=== PATIENT | female | born 1930 | race Asian ===

== ENCOUNTER 2017-02-20 12:42 | Inpatient (IN) | payer MEDICARE, OTHER ==
[2017-02-20] MEDS: SOD CHLORIDE 0.9% 1,000 ML IV (15:36)
[2017-02-20] MEDS: METHYLPREDNISOLONE 125 MG INJ IV ×2 (15:36→18:21)
[2017-02-20 16:00] LABS: ADD MAN DIFF? NO
[2017-02-20 16:01] LABS: BASOPHIL # 0.1 10^3/ul (0.0-0.1); BASOPHILS % 0.6 % (0.0-2.0); EOSINOPHILS # 0.3 10^3/ul (0.0-0.5); EOSINOPHILS % 3.6 % (0.0-7.0); HEMOGLOBIN 14.2 g/dl (12.0-16.0); LYMPHOCYTES # 1.4 10^3/ul (0.8-2.9); LYMPHOCYTES % 17.2 % (15.0-51.0); MEAN CORPUSCULAR HEMOGLOBIN 29.2 pg (29.0-33.0); MEAN CORPUSCULAR VOLUME 88.5 fl (82.0-101.0); MEAN PLATELET VOLUME 9.3 fl (7.4-10.4); MONOCYTE # 0.6 10^3/ul (0.3-0.9); MONOCYTES % 7.5 % (0.0-11.0); NEUTROPHIL # 5.5 10^3/ul (1.6-7.5); NEUTROPHILS % 70.8 % (39.0-77.0); PLATELET COUNT 381 10^3/UL (140-415); RED BLOOD COUNT 4.86 10^6/ul (4.20-5.40); RED CELL DISTRIBUTION WIDTH 12.6 % (11.5-14.5)
[2017-02-20 16:01] LABS: WHITE BLOOD COUNT 7.8 10^3/ul (4.8-10.8)
[2017-02-20] MEDS: IPRATROPIUM (NEB) 0.5 MG/2.5 ML AMP NEB (16:01)
[2017-02-20] MEDS: ALBUTEROL 0.5% (NEB) 2.5 MG/0.5 ML AMP NEB (16:01)
[2017-02-20 16:06] LABS: Allen Test ACCEPTAB; Arterial Base Excess -5.3 mmol/L (-3.0-3); Arterial Blood Gas Oxygen Sat 97.5 mmHG (95.0-100.0); Arterial Fraction of Oxyhgb 96.3 % (93.0-99.0); Arterial MetHb 0.2 % (0.0-1.5); Arterial Total Hemglobin 13.8 g/dl (12.0-18.0); Arterial pCO2 33.5 mmhg (35-45); MODE NASAL CANNULA; Site Right Radial
[2017-02-20 16:21] LABS: ALANINE AMINOTRANSFERASE 32 IU/L (13-69); ALBUMIN 4.7 g/dl (3.3-4.9); ALBUMIN/GLOBULIN RATIO 1.51; ALKALINE PHOSPHATASE 79 IU/L (42-121); ANION GAP 18 (8-16); ASPARTATE AMINO TRANSFERASE 37 IU/L (15-46); BILIRUBIN,INDIRECT 1.1 mg/dl (0-1.1); BILIRUBIN,TOTAL 1.1 mg/dl (0.2-1.3); BLOOD UREA NITROGEN 14 mg/dl (7-20); CALCIUM 9.4 mg/dl (8.4-10.2); CARBON DIOXIDE 22 mmol/L (21-31); CHLORIDE 107 mmol/L (97-110); CREATININE 0.93 mg/dl (0.44-1.00); GLUCOSE 94 mg/dl (70-220); POTASSIUM 3.8 mmol/L (3.5-5.1); SODIUM 143 mmol/L (135-144); TOTAL PROTEIN 7.8 g/dl (6.1-8.1)
[2017-02-20 16:32] LABS: B-TYPE NATRIURETIC PEPTIDE 233 PG/ML (0-450)
[2017-02-20 16:41] LABS: TROPONIN-I < 0.012 ng/ml (0.00-0.12)
[2017-02-20] MEDS ORDERED: ACETAMINOPHEN 325 MG TAB PO ×2 (17:00→18:00)
[2017-02-20] MEDS ORDERED: ONDANSETRON 4 MG INJ IV ×2 (17:00→18:00)
[2017-02-20] MEDS ORDERED: NACL 0.9% 3 ML SYG IV (18:00)
[2017-02-20] MEDS ORDERED: MAGNESIUM HYDROXIDE 30ML CUP PO (18:00)
[2017-02-20] MEDS ORDERED: DOCUSATE SODIUM 100 MG CAP PO (18:00)
[2017-02-20] MEDS: GUAIFENESIN/DM 5ML CUP PO (18:20)
[2017-02-20] MEDS: IOHEXOL 300MG/ML 150 ML BTL (18:49)
[2017-02-20] MEDS: SOD CHLORIDE 0.9% 100 ML (18:49)
[2017-02-20] MEDS: FAMOTIDINE 20 MG TAB PO (23:14)
[2017-02-20] MEDS: ALBUTEROL 0.083% (NEB) 2.5 MG/3 ML AMP HHN (23:17)
[2017-02-21] MEDS: GUAIFENESIN/DM 5ML CUP PO (01:35)
[2017-02-21] MEDS: SALMETEROL/FLUTICASONE 250/50 INHA INH ×3 (01:35→20:54)
[2017-02-21] MEDS: METHYLPREDNISOLONE 125 MG INJ IV ×2 (01:36→05:27)
[2017-02-21] MEDS: LORATADINE 10 MG TAB PO (08:15)
[2017-02-21] MEDS: ASPIRIN 81 MG TAB PO (08:15)
[2017-02-21] MEDS: ENOXAPARIN 30 MG/0.3 ML SYG SC (08:16)
[2017-02-21 08:57] LABS: ADD MAN DIFF? NO
[2017-02-21 09:15] LABS: WHITE BLOOD COUNT 4.6 10^3/ul (4.8-10.8)
[2017-02-21 09:15] LABS: ABNORMAL IP MESSAGE 1; HEMATOCRIT 40.1 % (37.0-47.0); HEMOGLOBIN 13.4 g/dl (12.0-16.0); LYMPHOCYTES # 0.6 10^3/ul (0.8-2.9); LYMPHOCYTES % 12.8 % (15.0-51.0); MEAN CORPUSCULAR HEMOGLOBIN 29.3 pg (29.0-33.0); MEAN CORPUSCULAR HGB CONC 33.4 g/dl (32.0-37.0); MEAN CORPUSCULAR VOLUME 87.6 fl (82.0-101.0); MEAN PLATELET VOLUME 9.3 fl (7.4-10.4); MONOCYTES % 0.7 % (0.0-11.0); NEUTROPHILS % 86.1 % (39.0-77.0); PLATELET COUNT 319 10^3/UL (140-415); RED BLOOD COUNT 4.58 10^6/ul (4.20-5.40); RED CELL DISTRIBUTION WIDTH 12.8 % (11.5-14.5)
[2017-02-21 09:24] LABS: ALBUMIN 4.2 g/dl (3.3-4.9); ANION GAP 16 (8-16); BLOOD UREA NITROGEN 17 mg/dl (7-20); CALCIUM 8.8 mg/dl (8.4-10.2); CARBON DIOXIDE 22 mmol/L (21-31); CHLORIDE 109 mmol/L (97-110); CREATININE 0.78 mg/dl (0.44-1.00); GLUCOSE 169 mg/dl (70-220); MAGNESIUM 2.2 mg/dl (1.7-2.5); PHOSPHORUS 3.2 mg/dl (2.5-4.9); POTASSIUM 3.9 mmol/L (3.5-5.1); SODIUM 143 mmol/L (135-144)
[2017-02-21 09:25] LABS: POSITIVE DIFF @See below
[2017-02-21] MEDS: ALBUTEROL 0.083% (NEB) 2.5 MG/3 ML AMP HHN ×4 (10:12→20:47)
[2017-02-21] MEDS: METHYLPREDNISOLONE 40 MG INJ IV ×2 (13:15→21:28)
[2017-02-21] MEDS: FAMOTIDINE 20 MG TAB PO (20:54)
[2017-02-21] MEDS: GUAIFENESIN/CODEINE 5ML CUP PO (21:28)
[2017-02-22] MEDS: GUAIFENESIN/CODEINE 5ML CUP PO ×3 (04:39→21:03)
[2017-02-22] MEDS: METHYLPREDNISOLONE 40 MG INJ IV ×2 (05:19→13:46)
[2017-02-22 08:12] LABS: ADD MAN DIFF? NO
[2017-02-22 08:18] LABS: BASOPHILS % 0.1 % (0.0-2.0); HEMATOCRIT 42.3 % (37.0-47.0); HEMOGLOBIN 13.5 g/dl (12.0-16.0); LYMPHOCYTES # 0.7 10^3/ul (0.8-2.9); LYMPHOCYTES % 5.5 % (15.0-51.0); MEAN CORPUSCULAR HEMOGLOBIN 28.9 pg (29.0-33.0); MEAN CORPUSCULAR HGB CONC 31.9 g/dl (32.0-37.0); MEAN CORPUSCULAR VOLUME 90.6 fl (82.0-101.0); MEAN PLATELET VOLUME 9.4 fl (7.4-10.4); MONOCYTE # 0.3 10^3/ul (0.3-0.9); MONOCYTES % 2.3 % (0.0-11.0); NEUTROPHIL # 11.8 10^3/ul (1.6-7.5); NEUTROPHILS % 91.6 % (39.0-77.0); PLATELET COUNT 372 10^3/UL (140-415); RED BLOOD COUNT 4.67 10^6/ul (4.20-5.40); RED CELL DISTRIBUTION WIDTH 13.2 % (11.5-14.5)
[2017-02-22 08:18] LABS: WHITE BLOOD COUNT 12.9 10^3/ul (4.8-10.8)
[2017-02-22] MEDS: ALBUTEROL 0.083% (NEB) 2.5 MG/3 ML AMP HHN ×4 (08:27→20:20)
[2017-02-22 08:41] LABS: ALBUMIN 4.2 g/dl (3.3-4.9); ANION GAP 20 (8-16); BLOOD UREA NITROGEN 25 mg/dl (7-20); CALCIUM 9.2 mg/dl (8.4-10.2); CARBON DIOXIDE 24 mmol/L (21-31); CHLORIDE 109 mmol/L (97-110); CREATININE 0.85 mg/dl (0.44-1.00); GLUCOSE 137 mg/dl (70-220); MAGNESIUM 2.4 mg/dl (1.7-2.5); PHOSPHORUS 3.3 mg/dl (2.5-4.9); POTASSIUM 4.7 mmol/L (3.5-5.1); SODIUM 148 mmol/L (135-144)
[2017-02-22] MEDS: ASPIRIN 81 MG TAB PO (09:07)
[2017-02-22] MEDS: SALMETEROL/FLUTICASONE 250/50 INHA INH ×2 (09:07→21:03)
[2017-02-22] MEDS: LORATADINE 10 MG TAB PO (09:07)
[2017-02-22] MEDS: ENOXAPARIN 30 MG/0.3 ML SYG SC (09:08)
[2017-02-22] MEDS: FAMOTIDINE 20 MG TAB PO (21:03)
[2017-02-23] MEDS: GUAIFENESIN/CODEINE 5ML CUP PO (05:25)
[2017-02-23] MEDS: ALBUTEROL 0.083% (NEB) 2.5 MG/3 ML AMP HHN ×4 (08:10→21:39)
[2017-02-23 08:38] LABS: ADD MAN DIFF? NO
[2017-02-23 08:41] LABS: WHITE BLOOD COUNT 10.9 10^3/ul (4.8-10.8)
[2017-02-23 08:41] LABS: BASOPHILS % 0.1 % (0.0-2.0); HEMATOCRIT 37.6 % (37.0-47.0); HEMOGLOBIN 12.6 g/dl (12.0-16.0); LYMPHOCYTES # 1.2 10^3/ul (0.8-2.9); LYMPHOCYTES % 10.7 % (15.0-51.0); MEAN CORPUSCULAR HEMOGLOBIN 29.8 pg (29.0-33.0); MEAN CORPUSCULAR HGB CONC 33.5 g/dl (32.0-37.0); MEAN CORPUSCULAR VOLUME 88.9 fl (82.0-101.0); MEAN PLATELET VOLUME 9.5 fl (7.4-10.4); MONOCYTE # 0.6 10^3/ul (0.3-0.9); MONOCYTES % 5.8 % (0.0-11.0); NEUTROPHILS % 82.8 % (39.0-77.0); PLATELET COUNT 329 10^3/UL (140-415); RED BLOOD COUNT 4.23 10^6/ul (4.20-5.40); RED CELL DISTRIBUTION WIDTH 13.2 % (11.5-14.5)
[2017-02-23 09:06] LABS: ALBUMIN 3.7 g/dl (3.3-4.9); ANION GAP 14 (8-16); BLOOD UREA NITROGEN 25 mg/dl (7-20); CALCIUM 8.1 mg/dl (8.4-10.2); CARBON DIOXIDE 26 mmol/L (21-31); CHLORIDE 109 mmol/L (97-110); CREATININE 0.82 mg/dl (0.44-1.00); GLUCOSE 89 mg/dl (70-220); MAGNESIUM 2.4 mg/dl (1.7-2.5); PHOSPHORUS 2.7 mg/dl (2.5-4.9); POTASSIUM 3.8 mmol/L (3.5-5.1); SODIUM 145 mmol/L (135-144)
[2017-02-23] MEDS: predniSONE 20 MG TAB PO (09:27)
[2017-02-23] MEDS: ASPIRIN 81 MG TAB PO (09:27)
[2017-02-23] MEDS: SALMETEROL/FLUTICASONE 250/50 INHA INH (09:27)
[2017-02-23] MEDS: LORATADINE 10 MG TAB PO (09:27)
[2017-02-23] MEDS: ENOXAPARIN 30 MG/0.3 ML SYG SC (09:29)
[2017-02-23] MEDS: FAMOTIDINE 20 MG TAB PO (21:31)
[2017-02-24] MEDS: SALMETEROL/FLUTICASONE 250/50 INHA INH ×2 (00:20→09:15)
[2017-02-24] MEDS: LORATADINE 10 MG TAB PO (09:16)
[2017-02-24] MEDS: predniSONE 20 MG TAB PO (09:16)
[2017-02-24] MEDS: ASPIRIN 81 MG TAB PO (09:16)
[2017-02-24] MEDS: ENOXAPARIN 30 MG/0.3 ML SYG SC (09:17)
[2017-02-24] MEDS: ALBUTEROL 0.083% (NEB) 2.5 MG/3 ML AMP HHN ×2 (09:55→13:42)
[2017-02-24 10:07] LABS: ADD MAN DIFF? NO
[2017-02-24 10:13] LABS: BASOPHILS % 0.1 % (0.0-2.0); EOSINOPHILS % 0.3 % (0.0-7.0); HEMOGLOBIN 13.6 g/dl (12.0-16.0); LYMPHOCYTES # 1.9 10^3/ul (0.8-2.9); MEAN CORPUSCULAR HEMOGLOBIN 29.2 pg (29.0-33.0); MEAN CORPUSCULAR HGB CONC 32.4 g/dl (32.0-37.0); MEAN CORPUSCULAR VOLUME 90.3 fl (82.0-101.0); MEAN PLATELET VOLUME 9.6 fl (7.4-10.4); MONOCYTE # 0.7 10^3/ul (0.3-0.9); MONOCYTES % 7.7 % (0.0-11.0); NEUTROPHIL # 6.4 10^3/ul (1.6-7.5); PLATELET COUNT 385 10^3/UL (140-415); RED BLOOD COUNT 4.65 10^6/ul (4.20-5.40); RED CELL DISTRIBUTION WIDTH 13.2 % (11.5-14.5)
[2017-02-24 10:13] LABS: WHITE BLOOD COUNT 9.1 10^3/ul (4.8-10.8)
[2017-02-24 10:38] LABS: ANION GAP 16 (8-16); BLOOD UREA NITROGEN 21 mg/dl (7-20); CALCIUM 8.5 mg/dl (8.4-10.2); CARBON DIOXIDE 29 mmol/L (21-31); CHLORIDE 106 mmol/L (97-110); CREATININE 0.77 mg/dl (0.44-1.00); GLUCOSE 72 mg/dl (70-220); MAGNESIUM 2.3 mg/dl (1.7-2.5); PHOSPHORUS 2.9 mg/dl (2.5-4.9); SODIUM 147 mmol/L (135-144)
== END 2017-02-24 16:30 | disposition home or self-care (01) | DRG 203 ==
LOC: MS4 20:35 → E/R 12:42 → MS4 16:53
DX: J45.51 Severe persistent asthma with (acute) exacerbation (principal); R91.1 Solitary pulmonary nodule; Z66 Do not resuscitate; R91.8 Other nonspecific abnormal finding of lung field
CPT/HCPCS: 36415; 36600; 71010; 71270; 80048; 80053; 80069; 82803; 83735; 83880; 84100; 84484; 85025; 87040; 87400; 93005; 94640; 94644; 94664; 96374; 96375; 97162; 99285-25

== ENCOUNTER 2018-01-19 07:00 | Emergency (ER) | payer MEDICARE, OTHER ==
[2018-01-19] MEDS: SOD CHLORIDE 0.9% 500 ML IV (07:51)
[2018-01-19 08:08] LABS: ADD MAN DIFF? NO
[2018-01-19 08:12] LABS: BASOPHILS % 0.6 % (0.0-2.0); EOSINOPHILS # 0.1 10^3/ul (0.0-0.5); EOSINOPHILS % 1.9 % (0.0-7.0); LYMPHOCYTES # 1.3 10^3/ul (0.8-2.9); LYMPHOCYTES % 20.9 % (15.0-51.0); MEAN CORPUSCULAR HEMOGLOBIN 30.1 pg (29.0-33.0); MEAN CORPUSCULAR HGB CONC 33.3 g/dl (32.0-37.0); MEAN CORPUSCULAR VOLUME 90.3 fl (82.0-101.0); MEAN PLATELET VOLUME 9.1 fl (7.4-10.4); MONOCYTE # 0.4 10^3/ul (0.3-0.9); MONOCYTES % 6.1 % (0.0-11.0); NEUTROPHIL # 4.5 10^3/ul (1.6-7.5); PLATELET COUNT 326 10^3/UL (140-415); RED BLOOD COUNT 4.65 10^6/ul (4.20-5.40); RED CELL DISTRIBUTION WIDTH 12.8 % (11.5-14.5)
[2018-01-19 08:12] LABS: WHITE BLOOD COUNT 6.4 10^3/ul (4.8-10.8)
[2018-01-19 08:35] LABS: ALANINE AMINOTRANSFERASE 26 IU/L (13-69); ALBUMIN 4.6 g/dl (3.3-4.9); ALBUMIN/GLOBULIN RATIO 1.64; ALKALINE PHOSPHATASE 97 IU/L (42-121); ANION GAP 12 (5-13); ASPARTATE AMINO TRANSFERASE 40 IU/L (15-46); BILIRUBIN,INDIRECT 1.2 mg/dl (0-1.1); BILIRUBIN,TOTAL 1.2 mg/dl (0.2-1.3); BLOOD UREA NITROGEN 14 mg/dl (7-20); CALCIUM 9.6 mg/dl (8.4-10.2); CARBON DIOXIDE 25 mmol/L (21-31); CHLORIDE 104 mmol/L (97-110); CREATININE 0.74 mg/dl (0.44-1.00); GLUCOSE 103 mg/dl (70-220); POTASSIUM 4.2 mmol/L (3.5-5.1); SODIUM 141 mmol/L (135-144); TOTAL PROTEIN 7.4 g/dl (6.1-8.1)
[2018-01-19 08:43] LABS: B-TYPE NATRIURETIC PEPTIDE 195 PG/ML (0-450)
== END 2018-01-19 10:05 | disposition home or self-care (01) ==
LOC: E/R 07:00
DX: J40 Bronchitis, not specified as acute or chronic (principal); R40.2142 Coma scale, eyes open, spontaneous, at arrival to emergency department; R40.2252 Coma scale, best verbal response, oriented, at arrival to emergency department; R40.2362 Coma scale, best motor response, obeys commands, at arrival to emergency department; Z79.82 Long term (current) use of aspirin
CPT/HCPCS: 71045; 80053; 83880; 85025; 99284-25

== ENCOUNTER 2018-01-29 08:21 | Emergency (ER) | payer MEDICARE, OTHER ==
[2018-01-29] MEDS: IBUPROFEN 200 MG TAB PO (10:28)
[2018-01-29] MEDS: HYDROCODONE/APAP (5/325) TAB PO (10:28)
== END 2018-01-29 13:18 | disposition home or self-care (01) ==
LOC: E/R 08:21
DX: S29.011A Strain of muscle and tendon of front wall of thorax, initial encounter (principal); J45.909 Unspecified asthma, uncomplicated; X58.XXXA Exposure to other specified factors, initial encounter; Y92.9 Unspecified place or not applicable; Z79.82 Long term (current) use of aspirin
CPT/HCPCS: 71045; 99283-25

== ENCOUNTER 2018-02-22 15:01 | Inpatient (IN) | payer MEDICARE, OTHER ==
[2018-02-22 16:54] LABS: ADD MAN DIFF? NO
[2018-02-22 16:58] LABS: BASOPHIL # 0.1 10^3/ul (0.0-0.1); BASOPHILS % 0.5 % (0.0-2.0); EOSINOPHILS # 0.3 10^3/ul (0.0-0.5); HEMATOCRIT 40.6 % (37.0-47.0); HEMOGLOBIN 13.5 g/dl (12.0-16.0); LYMPHOCYTES # 1.2 10^3/ul (0.8-2.9); LYMPHOCYTES % 12.5 % (15.0-51.0); MEAN CORPUSCULAR HEMOGLOBIN 29.9 pg (29.0-33.0); MEAN CORPUSCULAR HGB CONC 33.3 g/dl (32.0-37.0); MEAN CORPUSCULAR VOLUME 89.8 fl (82.0-101.0); MEAN PLATELET VOLUME 9.4 fl (7.4-10.4); MONOCYTE # 0.5 10^3/ul (0.3-0.9); MONOCYTES % 5.7 % (0.0-11.0); NEUTROPHIL # 7.3 10^3/ul (1.6-7.5); NEUTROPHILS % 77.6 % (39.0-77.0); PLATELET COUNT 257 10^3/UL (140-415); RED BLOOD COUNT 4.52 10^6/ul (4.20-5.40); RED CELL DISTRIBUTION WIDTH 13.2 % (11.5-14.5)
[2018-02-22 16:58] LABS: WHITE BLOOD COUNT 9.4 10^3/ul (4.8-10.8)
[2018-02-22 17:23] LABS: ANION GAP 10 (5-13); BLOOD UREA NITROGEN 9 mg/dl (7-20); CALCIUM 9.3 mg/dl (8.4-10.2); CARBON DIOXIDE 29 mmol/L (21-31); CHLORIDE 104 mmol/L (97-110); CREATININE 0.65 mg/dl (0.44-1.00); GLUCOSE 112 mg/dl (70-220); POTASSIUM 3.8 mmol/L (3.5-5.1); SODIUM 143 mmol/L (135-144)
[2018-02-22 17:32] LABS: B-TYPE NATRIURETIC PEPTIDE 1860 PG/ML (0-450)
[2018-02-22 17:44] LABS: TROPONIN-I 0.474 ng/ml (0.000-0.120)
[2018-02-22] MEDS: ASPIRIN 81 MG TAB PO (17:57)
[2018-02-22] MEDS ORDERED: ACETAMINOPHEN 325 MG TAB PO (18:30)
[2018-02-22] MEDS ORDERED: ONDANSETRON 4 MG INJ IV (18:30)
[2018-02-22] MEDS: ENOXAPARIN 60 MG/0.6 ML SYG SC (19:00)
[2018-02-22] MEDS: ALBUTEROL/IPRATROPIUM (NEB) 3 ML AMP HHN (20:30)
[2018-02-22] MEDS: BUDESONIDE (NEB) 0.5MG/2ML AMP HHN (20:30)
[2018-02-22] MEDS: CEFEPIME 1GM/50 ML (PMX) 50 ML IVPB (21:01)
[2018-02-22] MEDS: hydrALAzine 20 MG INJ IV (23:59)
[2018-02-23] MEDS: METHYLPREDNISOLONE 125 MG INJ IV (00:20)
[2018-02-23] MEDS ORDERED: HYDROCODONE/APAP (5/325) TAB PO (00:30)
[2018-02-23] MEDS ORDERED: ACETAMINOPHEN 325 MG TAB PO (00:30)
[2018-02-23] MEDS ORDERED: ALBUTEROL/IPRATROPIUM (NEB) 3 ML AMP HHN (00:30)
[2018-02-23] MEDS ORDERED: NACL 0.9% 3 ML SYG IV (00:30)
[2018-02-23] MEDS ORDERED: ONDANSETRON 4 MG INJ IV (00:30)
[2018-02-23] MEDS ORDERED: NON-FORMULARY/PATIENT OWN MED (Salmeterol Xinaf/Fluticasone* (Advair*) 1 INH) INHALATION (00:30)
[2018-02-23] MEDS ORDERED: NITROGLYCERIN (SL) 0.4 MG TAB SL (00:30)
[2018-02-23 00:35] LABS: TROPONIN-I 0.414 ng/ml (0.000-0.120)
[2018-02-23 00:46] LABS: CREATINE KINASE 50 IU/L (23-200)
[2018-02-23 00:56] LABS: CK-MB 1.46 ng/ml (0.0-2.4)
[2018-02-23] MEDS: AMLODIPINE 10 MG TAB PO ×2 (03:22→08:26)
[2018-02-23 05:38] LABS: ADD MAN DIFF? NO
[2018-02-23 05:45] LABS: WHITE BLOOD COUNT 7.8 10^3/ul (4.8-10.8)
[2018-02-23 05:45] LABS: ABNORMAL IP MESSAGE 1; BASOPHILS % 0.5 % (0.0-2.0); EOSINOPHILS % 0.3 % (0.0-7.0); HEMATOCRIT 41.1 % (37.0-47.0); LYMPHOCYTES # 0.5 10^3/ul (0.8-2.9); LYMPHOCYTES % 6.4 % (15.0-51.0); MEAN CORPUSCULAR HEMOGLOBIN 30.4 pg (29.0-33.0); MEAN CORPUSCULAR HGB CONC 34.1 g/dl (32.0-37.0); MEAN CORPUSCULAR VOLUME 89.2 fl (82.0-101.0); MEAN PLATELET VOLUME 9.5 fl (7.4-10.4); MONOCYTE # 0.1 10^3/ul (0.3-0.9); MONOCYTES % 0.9 % (0.0-11.0); NEUTROPHIL # 7.1 10^3/ul (1.6-7.5); NEUTROPHILS % 90.8 % (39.0-77.0); PLATELET COUNT 263 10^3/UL (140-415); RED BLOOD COUNT 4.61 10^6/ul (4.20-5.40); RED CELL DISTRIBUTION WIDTH 13.2 % (11.5-14.5)
[2018-02-23 06:00] LABS: CREATINE KINASE 48 IU/L (23-200)
[2018-02-23 06:08] LABS: ALANINE AMINOTRANSFERASE 27 IU/L (13-69); ALBUMIN 3.8 g/dl (3.3-4.9); ALKALINE PHOSPHATASE 140 IU/L (42-121); ANION GAP 11 (5-13); ASPARTATE AMINO TRANSFERASE 42 IU/L (15-46); BILIRUBIN,INDIRECT 0.5 mg/dl (0-1.1); BILIRUBIN,TOTAL 0.5 mg/dl (0.2-1.3); BLOOD UREA NITROGEN 10 mg/dl (7-20); CALCIUM 9.1 mg/dl (8.4-10.2); CARBON DIOXIDE 28 mmol/L (21-31); CHLORIDE 104 mmol/L (97-110); CHOL/HDL RATIO 4.4 RATIO; CHOLESTEROL 199 mg/dl (100-200); CREATININE 0.54 mg/dl (0.44-1.00); GLUCOSE 142 mg/dl (70-220); HDL CHOLESTEROL 45 mg/dl (33-92); LDL CHOLESTEROL,CALCULATED 130 mg/dl; POTASSIUM 3.6 mmol/L (3.5-5.1); SODIUM 143 mmol/L (135-144); TOTAL PROTEIN 6.5 g/dl (6.1-8.1); TRIGLYCERIDES 120 mg/dl (0-149)
[2018-02-23 06:13] LABS: CK INDEX 2.5
[2018-02-23 06:14] LABS: TROPONIN-I 0.295 ng/ml (0.000-0.120)
[2018-02-23] MEDS: LEVOFLOXACIN 500MG/D5W (PMX) 100 ML IVPB (06:31)
[2018-02-23] MEDS: PANTOPRAZOLE (EC) 40 MG TAB PO (06:31)
[2018-02-23 06:33] LABS: POSITIVE DIFF @See below; THYROID STIMULATING HORMONE 0.741 MIU/L (0.465-4.680)
[2018-02-23 07:07] LABS: HEMOGLOBIN A1C 5.7 % (0-5.9)
[2018-02-23] MEDS: ASPIRIN 81 MG TAB PO (08:25)
[2018-02-23] MEDS: FOLIC ACID 0.4 MG TAB PO (08:25)
[2018-02-23] MEDS: CEFEPIME 1GM/50 ML (PMX) 50 ML IVPB ×2 (08:25→20:06)
[2018-02-23] MEDS: ENOXAPARIN 60 MG/0.6 ML SYG SC (08:30)
[2018-02-23] MEDS: BUDESONIDE (NEB) 0.5MG/2ML AMP HHN ×2 (08:55→20:49)
[2018-02-23] MEDS: ALBUTEROL/IPRATROPIUM (NEB) 3 ML AMP HHN ×3 (08:55→20:49)
[2018-02-23] MEDS ORDERED: ENOXAPARIN 100 MG/ML SYG SC (09:00)
[2018-02-23] MEDS ORDERED: FLUTICASONE/VILANTEROL 100-25 INH (09:00)
[2018-02-23 13:08] LABS: TROPONIN-I 0.195 ng/ml (0.000-0.120)
[2018-02-23 15:31] LABS: TROPONIN-I 0.192 ng/ml (0.000-0.120)
[2018-02-23] MEDS: GUAIFENESIN 20 MG/ML 5ML CUP PO (16:29)
[2018-02-23] MEDS: ATORVASTATIN 40 MG TAB PO (20:06)
[2018-02-23 23:13] LABS: TROPONIN-I 0.198 ng/ml (0.000-0.120)
[2018-02-24] MEDS: LEVOFLOXACIN 500MG/D5W (PMX) 100 ML IVPB (05:34)
[2018-02-24 05:35] LABS: ADD MAN DIFF? NO
[2018-02-24] MEDS: PANTOPRAZOLE (EC) 40 MG TAB PO (05:35)
[2018-02-24 05:44] LABS: BASOPHILS % 0.4 % (0.0-2.0); EOSINOPHILS # 0.1 10^3/ul (0.0-0.5); EOSINOPHILS % 0.9 % (0.0-7.0); HEMOGLOBIN 13.3 g/dl (12.0-16.0); LYMPHOCYTES # 1.3 10^3/ul (0.8-2.9); LYMPHOCYTES % 12.9 % (15.0-51.0); MEAN CORPUSCULAR HEMOGLOBIN 30.2 pg (29.0-33.0); MEAN CORPUSCULAR HGB CONC 33.3 g/dl (32.0-37.0); MEAN CORPUSCULAR VOLUME 90.7 fl (82.0-101.0); MEAN PLATELET VOLUME 9.1 fl (7.4-10.4); MONOCYTE # 0.6 10^3/ul (0.3-0.9); MONOCYTES % 5.9 % (0.0-11.0); NEUTROPHIL # 8.1 10^3/ul (1.6-7.5); NEUTROPHILS % 79.1 % (39.0-77.0); PLATELET COUNT 309 10^3/UL (140-415); RED BLOOD COUNT 4.41 10^6/ul (4.20-5.40); RED CELL DISTRIBUTION WIDTH 13.2 % (11.5-14.5)
[2018-02-24 05:44] LABS: WHITE BLOOD COUNT 10.2 10^3/ul (4.8-10.8)
[2018-02-24 06:00] LABS: ANION GAP 8 (5-13); BLOOD UREA NITROGEN 13 mg/dl (7-20); CALCIUM 9.2 mg/dl (8.4-10.2); CARBON DIOXIDE 31 mmol/L (21-31); CHLORIDE 105 mmol/L (97-110); CREATININE 0.61 mg/dl (0.44-1.00); GLUCOSE 104 mg/dl (70-220); MAGNESIUM 2.3 mg/dl (1.7-2.5); PHOSPHORUS 3.8 mg/dl (2.5-4.9); POTASSIUM 3.5 mmol/L (3.5-5.1); SODIUM 144 mmol/L (135-144)
[2018-02-24] MEDS: CEFEPIME 1GM/50 ML (PMX) 50 ML IVPB ×2 (08:13→20:29)
[2018-02-24] MEDS: FOLIC ACID 0.4 MG TAB PO (08:13)
[2018-02-24] MEDS: ASPIRIN 81 MG TAB PO (08:13)
[2018-02-24] MEDS: AMLODIPINE 10 MG TAB PO (08:13)
[2018-02-24] MEDS: ENOXAPARIN 40 MG/0.4 ML SYG SC (08:18)
[2018-02-24] MEDS: BUDESONIDE (NEB) 0.5MG/2ML AMP HHN ×2 (08:32→20:54)
[2018-02-24] MEDS: ALBUTEROL/IPRATROPIUM (NEB) 3 ML AMP HHN (08:32)
[2018-02-24] MEDS: GUAIFENESIN 20 MG/ML 5ML CUP PO (10:46)
[2018-02-24] MEDS: predniSONE 20 MG TAB PO (12:21)
[2018-02-24] MEDS: SOD CHLORIDE 0.9% 100 ML (17:09)
[2018-02-24] MEDS: IOHEXOL 100 ML (17:09)
[2018-02-24] MEDS: ATORVASTATIN 40 MG TAB PO (20:29)
[2018-02-24] MEDS: APIXABAN 5 MG TABLET PO (20:29)
[2018-02-24] MEDS: METOPROLOL 25 MG TAB PO (20:30)
[2018-02-25] MEDS: PANTOPRAZOLE (EC) 40 MG TAB PO (05:17)
[2018-02-25] MEDS: LEVOFLOXACIN 500MG/D5W (PMX) 100 ML IVPB (05:17)
[2018-02-25 06:01] LABS: ADD MAN DIFF? NO
[2018-02-25 06:22] LABS: BASOPHILS % 0.2 % (0.0-2.0); HEMOGLOBIN 14.4 g/dl (12.0-16.0); LYMPHOCYTES # 0.8 10^3/ul (0.8-2.9); LYMPHOCYTES % 8.5 % (15.0-51.0); MEAN CORPUSCULAR HEMOGLOBIN 29.6 pg (29.0-33.0); MEAN CORPUSCULAR HGB CONC 32.7 g/dl (32.0-37.0); MEAN CORPUSCULAR VOLUME 90.5 fl (82.0-101.0); MEAN PLATELET VOLUME 9.3 fl (7.4-10.4); MONOCYTE # 0.3 10^3/ul (0.3-0.9); MONOCYTES % 2.7 % (0.0-11.0); NEUTROPHIL # 8.2 10^3/ul (1.6-7.5); NEUTROPHILS % 87.7 % (39.0-77.0); PLATELET COUNT 372 10^3/UL (140-415); RED BLOOD COUNT 4.86 10^6/ul (4.20-5.40); RED CELL DISTRIBUTION WIDTH 13.1 % (11.5-14.5)
[2018-02-25 06:22] LABS: WHITE BLOOD COUNT 9.3 10^3/ul (4.8-10.8)
[2018-02-25 06:46] LABS: ANION GAP 8 (5-13); BLOOD UREA NITROGEN 19 mg/dl (7-20); CALCIUM 9.3 mg/dl (8.4-10.2); CARBON DIOXIDE 29 mmol/L (21-31); CHLORIDE 105 mmol/L (97-110); CREATININE 0.65 mg/dl (0.44-1.00); GLUCOSE 115 mg/dl (70-220); POTASSIUM 4.3 mmol/L (3.5-5.1); SODIUM 142 mmol/L (135-144)
[2018-02-25] MEDS: FOLIC ACID 0.4 MG TAB PO (09:25)
[2018-02-25] MEDS: AMLODIPINE 10 MG TAB PO (09:25)
[2018-02-25] MEDS: ASPIRIN 81 MG TAB PO (09:25)
[2018-02-25] MEDS: predniSONE 20 MG TAB PO (09:25)
[2018-02-25] MEDS: APIXABAN 5 MG TABLET PO (09:26)
[2018-02-25] MEDS: METOPROLOL 25 MG TAB PO ×2 (09:26→20:29)
[2018-02-25] MEDS: CEFEPIME 1GM/50 ML (PMX) 50 ML IVPB ×2 (09:26→20:32)
[2018-02-25] MEDS: BUDESONIDE (NEB) 0.5MG/2ML AMP HHN ×2 (10:21→21:35)
[2018-02-25] MEDS: HYDROCODONE/APAP (5/325) TAB PO (20:24)
[2018-02-25] MEDS: ATORVASTATIN 40 MG TAB PO (20:24)
[2018-02-26] MEDS: PANTOPRAZOLE (EC) 40 MG TAB PO (05:13)
[2018-02-26] MEDS: CEFEPIME 1GM/50 ML (PMX) 50 ML IVPB ×2 (08:11→20:25)
[2018-02-26] MEDS: ASPIRIN 81 MG TAB PO (08:15)
[2018-02-26] MEDS: AMLODIPINE 10 MG TAB PO (08:15)
[2018-02-26] MEDS: METOPROLOL 25 MG TAB PO ×2 (08:15→20:24)
[2018-02-26] MEDS: predniSONE 20 MG TAB PO (08:15)
[2018-02-26] MEDS: FOLIC ACID 0.4 MG TAB PO (08:16)
[2018-02-26] MEDS: ENOXAPARIN 60 MG/0.6 ML SYG SC ×2 (08:23→20:35)
[2018-02-26] MEDS: BUDESONIDE (NEB) 0.5MG/2ML AMP HHN ×2 (10:47→21:00)
[2018-02-26] MEDS: ATORVASTATIN 40 MG TAB PO (20:24)
[2018-02-26] MEDS: ALBUTEROL/IPRATROPIUM (NEB) 3 ML AMP HHN (21:00)
[2018-02-27] MEDS: PANTOPRAZOLE (EC) 40 MG TAB PO (05:23)
[2018-02-27] MEDS: AMLODIPINE 10 MG TAB PO (08:32)
[2018-02-27] MEDS: CEFEPIME 1GM/50 ML (PMX) 50 ML IVPB ×2 (08:32→20:53)
[2018-02-27] MEDS: predniSONE 20 MG TAB PO (08:33)
[2018-02-27] MEDS: FOLIC ACID 0.4 MG TAB PO (08:33)
[2018-02-27] MEDS: ASPIRIN 81 MG TAB PO (08:34)
[2018-02-27] MEDS: METOPROLOL 25 MG TAB PO ×2 (08:34→20:57)
[2018-02-27] MEDS: ENOXAPARIN 60 MG/0.6 ML SYG SC ×2 (08:35→20:59)
[2018-02-27] MEDS: ALBUTEROL/IPRATROPIUM (NEB) 3 ML AMP HHN ×2 (09:09→09:10)
[2018-02-27] MEDS: BUDESONIDE (NEB) 0.5MG/2ML AMP HHN ×2 (09:10→20:46)
[2018-02-27 12:43] LABS: INR 1.04; PROTIME 13.7 Sec (11.9-14.9); PT RATIO 1.1
[2018-02-27 12:44] LABS: PARTIAL THROMBOPLASTIN TIME 35.8 Sec (23.0-35.0)
[2018-02-27] MEDS: LIDOCAINE 1% (MPF) 5 ML VIAL (16:17)
[2018-02-27 17:05] LABS: FLD RBC 45000 /uL; FLD WBC 2173 /cmm
[2018-02-27 17:33] LABS: FLUID TOTAL PROTEIN 4.3 g/dl
[2018-02-27 17:34] LABS: FLUID TYPE PLEURAL FLUID
[2018-02-27 17:37] LABS: FLD TYPE PLEURAL
[2018-02-27 17:38] LABS: FLD CLARITY CLOUDY; FLD COLOR RED
[2018-02-27 17:41] LABS: FLD MN% 79.7 %; FLD PMN% 20.3 %
[2018-02-27 17:48] LABS: FLUID LD 7964 U/L
[2018-02-27 18:44] LABS: TOTAL PROTEIN 7.2 g/dl (6.1-8.1)
[2018-02-27 18:57] LABS: LACTATE DEHYDROGENASE 3163 IU/L (313-618)
[2018-02-27] MEDS: ATORVASTATIN 40 MG TAB PO (20:53)
[2018-02-28] MEDS: PANTOPRAZOLE (EC) 40 MG TAB PO (06:02)
[2018-02-28] MEDS: CEFEPIME 1GM/50 ML (PMX) 50 ML IVPB (08:46)
[2018-02-28] MEDS: predniSONE 10 MG TAB PO (08:47)
[2018-02-28] MEDS: FOLIC ACID 0.4 MG TAB PO (08:47)
[2018-02-28] MEDS: METOPROLOL 25 MG TAB PO (08:47)
[2018-02-28] MEDS: ASPIRIN 81 MG TAB PO (08:47)
[2018-02-28] MEDS: AMLODIPINE 10 MG TAB PO (08:50)
[2018-02-28] MEDS: ENOXAPARIN 60 MG/0.6 ML SYG SC (09:01)
[2018-02-28] MEDS: BUDESONIDE (NEB) 0.5MG/2ML AMP HHN (09:09)
== END 2018-02-28 17:10 | disposition home or self-care (01) | DRG 202 ==
LOC: E/R 15:01 → 6WM 18:26
PROC: 0W993ZZ Drainage of Right Pleural Cavity, Percutaneous Approach (ICD-10-PCS; principal; 2018-02-27)
DX: J45.901 Unspecified asthma with (acute) exacerbation (principal); J18.9 Pneumonia, unspecified organism; I82.4Z3 Acute embolism and thrombosis of unspecified deep veins of distal lower extremity, bilateral; I24.8 Other forms of acute ischemic heart disease; J90 Pleural effusion, not elsewhere classified; R74.8 Abnormal levels of other serum enzymes; I11.9 Hypertensive heart disease without heart failure; J98.4 Other disorders of lung; J47.9 Bronchiectasis, uncomplicated; Z86.11 Personal history of tuberculosis; Z79.82 Long term (current) use of aspirin
CPT/HCPCS: 71045; 71275; 76942; 80048; 80053; 80061; 81235; 82550; 82553; 83036; 83615; 83735; 83880; 84100; 84155; 84157; 84443; 84484; 85025; 85610; 85730; 87070; 87102; 87116; 88104; 88305; 88313; 88341; 88342; 88360; 88377; 89051; 93005; 93306; 93970; 94640; 94664; 97110; 97116; 97162; 97167; 97530; 99285-25

== ENCOUNTER 2018-03-18 19:55 | Inpatient (IN) | payer MEDICARE, OTHER ==
[2018-03-18 21:24] LABS: ADD MAN DIFF? NO
[2018-03-18 21:25] LABS: BASOPHILS % 0.2 % (0.0-2.0); EOSINOPHILS # 0.1 10^3/ul (0.0-0.5); EOSINOPHILS % 0.6 % (0.0-7.0); HEMOGLOBIN 12.9 g/dl (12.0-16.0); LYMPHOCYTES # 1.5 10^3/ul (0.8-2.9); LYMPHOCYTES % 12.1 % (15.0-51.0); MEAN CORPUSCULAR HEMOGLOBIN 29.3 pg (29.0-33.0); MEAN CORPUSCULAR HGB CONC 33.1 g/dl (32.0-37.0); MEAN CORPUSCULAR VOLUME 88.6 fl (82.0-101.0); MEAN PLATELET VOLUME 9.2 fl (7.4-10.4); MONOCYTE # 0.8 10^3/ul (0.3-0.9); MONOCYTES % 6.5 % (0.0-11.0); NEUTROPHIL # 10.1 10^3/ul (1.6-7.5); PLATELET COUNT 331 10^3/UL (140-415); RED CELL DISTRIBUTION WIDTH 13.2 % (11.5-14.5)
[2018-03-18 21:25] LABS: WHITE BLOOD COUNT 12.7 10^3/ul (4.8-10.8)
[2018-03-18 22:08] LABS: LACTIC ACID 2.9 mmol/L (0.5-2.0)
[2018-03-18 22:17] LABS: ALANINE AMINOTRANSFERASE 22 IU/L (13-69); ALBUMIN 3.6 g/dl (3.3-4.9); ALBUMIN/GLOBULIN RATIO 1.24; ALKALINE PHOSPHATASE 233 IU/L (42-121); ANION GAP 12 (5-13); ASPARTATE AMINO TRANSFERASE 68 IU/L (15-46); BILIRUBIN,INDIRECT 0.7 mg/dl (0-1.1); BILIRUBIN,TOTAL 0.7 mg/dl (0.2-1.3); BLOOD UREA NITROGEN 11 mg/dl (7-20); CARBON DIOXIDE 26 mmol/L (21-31); CHLORIDE 102 mmol/L (97-110); CREATININE 0.74 mg/dl (0.44-1.00); GLUCOSE 115 mg/dl (70-220); POTASSIUM 3.9 mmol/L (3.5-5.1); SODIUM 140 mmol/L (135-144); TOTAL PROTEIN 6.5 g/dl (6.1-8.1)
[2018-03-18 22:21] LABS: INR 1.32; PROTIME 16.5 Sec (11.9-14.9); PT RATIO 1.3
[2018-03-18 22:22] LABS: PARTIAL THROMBOPLASTIN TIME 33.5 Sec (23.0-35.0)
[2018-03-18 22:29] LABS: B-TYPE NATRIURETIC PEPTIDE 709 PG/ML (0-450); TROPONIN-I < 0.012 ng/ml (0.000-0.120)
[2018-03-18] MEDS ORDERED: SOD CHLORIDE 0.9% 100 ML (22:49)
[2018-03-18] MEDS ORDERED: IODIXANOL LOCM 100 ML BTL (22:49)
[2018-03-18] MEDS: CEFEPIME 2GM/50 ML (PMX) 50 ML IVPB (22:50)
[2018-03-18] MEDS: VANCOMYCIN 1 GM (PMX) 250 ML IVPB (23:32)
[2018-03-19] MEDS ORDERED: BISACODYL (EC) 5 MG TAB PO
[2018-03-19] MEDS ORDERED: DOCUSATE SODIUM 100 MG CAP PO
[2018-03-19] MEDS ORDERED: VANCOMYCIN IV PER PHARMACY XX
[2018-03-19] MEDS ORDERED: NACL 0.9% 3 ML SYG IV
[2018-03-19] MEDS ORDERED: ACETAMINOPHEN 325 MG TAB PO
[2018-03-19] MEDS ORDERED: ONDANSETRON 4 MG INJ IV
[2018-03-19 05:50] LABS: ADD MAN DIFF? NO
[2018-03-19 05:51] LABS: BASOPHILS % 0.3 % (0.0-2.0); EOSINOPHILS # 0.1 10^3/ul (0.0-0.5); HEMATOCRIT 37.3 % (37.0-47.0); HEMOGLOBIN 12.4 g/dl (12.0-16.0); LYMPHOCYTES # 1.1 10^3/ul (0.8-2.9); LYMPHOCYTES % 10.2 % (15.0-51.0); MEAN CORPUSCULAR HEMOGLOBIN 29.7 pg (29.0-33.0); MEAN CORPUSCULAR HGB CONC 33.2 g/dl (32.0-37.0); MEAN CORPUSCULAR VOLUME 89.2 fl (82.0-101.0); MEAN PLATELET VOLUME 9.1 fl (7.4-10.4); MONOCYTE # 0.6 10^3/ul (0.3-0.9); MONOCYTES % 5.7 % (0.0-11.0); NEUTROPHIL # 8.7 10^3/ul (1.6-7.5); NEUTROPHILS % 82.1 % (39.0-77.0); PLATELET COUNT 301 10^3/UL (140-415); RED BLOOD COUNT 4.18 10^6/ul (4.20-5.40); RED CELL DISTRIBUTION WIDTH 13.4 % (11.5-14.5)
[2018-03-19 05:51] LABS: WHITE BLOOD COUNT 10.6 10^3/ul (4.8-10.8)
[2018-03-19 06:19] LABS: ALANINE AMINOTRANSFERASE 25 IU/L (13-69); ALBUMIN 3.1 g/dl (3.3-4.9); ALKALINE PHOSPHATASE 179 IU/L (42-121); ANION GAP 11 (5-13); ASPARTATE AMINO TRANSFERASE 55 IU/L (15-46); BILIRUBIN,INDIRECT 0.8 mg/dl (0-1.1); BILIRUBIN,TOTAL 0.8 mg/dl (0.2-1.3); BLOOD UREA NITROGEN 8 mg/dl (7-20); CALCIUM 8.2 mg/dl (8.4-10.2); CARBON DIOXIDE 29 mmol/L (21-31); CHLORIDE 102 mmol/L (97-110); CREATININE 0.59 mg/dl (0.44-1.00); GLUCOSE 93 mg/dl (70-220); INR 1.21; MAGNESIUM 2.1 mg/dl (1.7-2.5); POTASSIUM 3.4 mmol/L (3.5-5.1); PROTIME 15.4 Sec (11.9-14.9); PT RATIO 1.2; SODIUM 142 mmol/L (135-144); TOTAL PROTEIN 5.9 g/dl (6.1-8.1)
[2018-03-19 06:20] LABS: PARTIAL THROMBOPLASTIN TIME 31.7 Sec (23.0-35.0)
[2018-03-19] MEDS: CEFEPIME 1GM/50 ML (PMX) 50 ML IVPB (08:35)
[2018-03-19] MEDS ORDERED: ALBUTEROL HFA 8 GM INHALER INH (09:00)
[2018-03-19] MEDS: PANTOPRAZOLE SODIUM 20 MG TABEC PO (10:00)
[2018-03-19] MEDS: FOLIC ACID 0.4 MG TAB PO (10:26)
[2018-03-19] MEDS: AMLODIPINE 10 MG TAB PO (10:26)
[2018-03-19] MEDS: CHOLECALCIFEROL 1,000 UNIT TAB PO (10:26)
[2018-03-19] MEDS: METOPROLOL 25 MG TAB PO (10:27)
[2018-03-19] MEDS: FLUTICASONE/VILANTEROL 100-25 INH (11:00)
[2018-03-19] MEDS ORDERED: GUAIFENESIN 20 MG/ML 5ML CUP PO (12:00)
[2018-03-19] MEDS ORDERED: HYDROmorphONE 2 MG TAB PO (12:00)
[2018-03-19 13:52] LABS: AADO2 Arterial 45.7 mmHg (7.0-24.0); Allen Test ACCEPTAB; Arterial Base Excess 1.7 mmol/L (-3.0-3); Arterial HCO3 25.2 mmol/L (22.0-26.0); Arterial pCO2 36.3 mmhg (35-45); MODE ROOM AIR; Site Left Radial
[2018-03-19] MEDS ORDERED: ATORVASTATIN 40 MG TAB PO (21:00)
[2018-03-20] MEDS ORDERED: VANCOMYCIN 750 MG (PMX) 250 ML IVPB (11:30)
== END 2018-03-19 16:35 | disposition home or self-care (01) | DRG 181 ==
LOC: E/R 19:55 → 6WM 22:58
PROVIDERS: Family Medicine
DX: C34.91 Malignant neoplasm of unspecified part of right bronchus or lung (principal); I82.491 Acute embolism and thrombosis of other specified deep vein of right lower extremity; I10 Essential (primary) hypertension; E78.5 Hyperlipidemia, unspecified; J45.909 Unspecified asthma, uncomplicated; Z79.01 Long term (current) use of anticoagulants; Z79.82 Long term (current) use of aspirin; Z86.711 Personal history of pulmonary embolism
CPT/HCPCS: 36415; 36600; 71045; 71275; 80053; 82803; 83605; 83735; 83880; 84484; 85025; 85610; 85730; 87040; 87400; 93005; 93970; 96374; 99285-25